=== PATIENT | female | born 2000 | race Caucasian/White ===

== ENCOUNTER 2024-04-07 04:40 | Day surgery (SDC) | payer BC ==
[2024-04-07] MEDS: Sodium Chloride 0.9% 1,000 ML IV SCH (04:58)
[2024-04-07] MEDS ORDERED: Lidocaine 1% 5 ML VIAL ONE (06:20)
[2024-04-07] MEDS ORDERED: Rocuronium 50 MG/5 ML Vial ONE (06:20)
[2024-04-07] MEDS ORDERED: Ondansetron 4 MG/2 ML SDV ONE (06:20)
[2024-04-07] MEDS ORDERED: Propofol 200 MG/20 ML SDV ONE (06:20)
[2024-04-07] MEDS ORDERED: Midazolam 1 MG/ML 2 ML SDV ONE (06:21)
[2024-04-07] MEDS ORDERED: fentaNYL 250 MCG/5 ML SDV ONE (06:21)
[2024-04-07] MEDS: Piperacillin/Tazobactam 4.5 GM in Sodium Chloride 0.9% 100 ML IV ONE (06:50)
[2024-04-07] MEDS ORDERED: Dexamethasone 4 MG/ML 5 ML MDV ONE (07:09)
[2024-04-07] MEDS ORDERED: HYDROmorphone 0.5 MG/0.5 ML Syringe IVPUSH PRN (07:42)
[2024-04-07] MEDS ORDERED: fentaNYL 100 MCG/2 ML SDV IVPUSH PRN (07:42)
[2024-04-07] MEDS ORDERED: Neostigmine Methylsulfate 10 MG/10 ML MDV ONE (07:49)
[2024-04-07] MEDS ORDERED: Ketorolac 30 MG/ML SDV ONE (07:51)
[2024-04-07] MEDS ORDERED: Lactated Ringers 1,000 ML ONE (07:54)
[2024-04-07] MEDS: Lidocaine 1% 30 ML SDV ONE (08:42)
[2024-04-07] MEDS: Bupivacaine 0.5% 30 ML SDV ONE (08:42)
[2024-04-07] MEDS: EPINEPHrine 1 MG/ML SDV ONE (08:42)
[2024-04-07] MEDS: Ondansetron 4 MG/2 ML SDV IVPUSH PRN (11:55)
[2024-04-07] MEDS: Acetaminophen/oxyCODONE 325-5 MG Tab PO PRN (12:05)
== END 2024-04-07 12:30 | disposition home or self-care (01) ==
LOC: JD.ED 04:40 → JD.SDS 07:08
PROVIDERS: ATTEND Surgery
DX: K35.33 Acute appendicitis with perforation, localized peritonitis, and gangrene, with abscess (principal); E66.9 Obesity, unspecified; Z68.30 Body mass index [BMI] 30.0-30.9, adult
CPT/HCPCS: 44970; A9270; J0171; J0665; J1100; J1596; J1885; J2250; J2405; J2543; J2704; J2710; J3010; J3490; J7030; J7120; 00840; 99140